=== PATIENT | female | born 1950 | race Caucasian/White ===

== ENCOUNTER → 2016-05-14 | Outpatient (CLI) | payer MEDICARE ==
[~2016-05-14] MED LIST: AMLO10; ENAL5TAB98; FISH300C2; GLUCOSAMINE; LORA10TA7; LORT5TAB PO; MEVA40TA6 PO; SERT100; SINE10100; SYNT25TA; TRAZ50TA78 PO; [UNRECOGNIZED DRUG - OTHER]
[2016-05-14 13:16] LABS: HEMATOCRIT 40.4 % (35.0-46.0); MEAN CELL VOLUME 90.3 FL (80.0-100.0); MEAN CORPUSCULAR HEMOGLOBIN 31.3 PG (27.0-34.0); MEAN CORPUSCULAR HGB CONC 34.7 % (32.0-36.0); PLATELET COUNT 176 TH/MM3 (150-450); RED BLOOD COUNT 4.48 MIL/MM3 (4.00-5.30); REVIEW FLAG FINAL; WHITE BLOOD COUNT 6.7 TH/MM3 (4.0-11.0)
[2016-05-14 13:40] LABS: ALKALINE PHOSPHATASE 81 U/L (45-117); ALT (GPT) 26 U/L (10-53); ANION GAP 9 MEQ/L (5-15); AST (GOT) 17 U/L (15-37); BICARBONATE 28.4 MEQ/L (21.0-32.0); BLOOD UREA NITROGEN 14 MG/DL (7-18); CHLORIDE 103 MEQ/L (98-107); FREE T4 1.14 NG/DL (0.76-1.46); GLOMERULAR FILTRATION RATE 91 ML/MIN (>89); GLUCOSE,FASTING 115 MG/DL (74-99); HDL CHOLESTEROL 48.4 MG/DL (40.0-60.0); LDL CHOLESTEROL 86 MG/DL (0-99); SODIUM (NA) 140 MEQ/L (136-145); TOTAL BILIRUBIN ADULT 0.5 MG/DL (0.2-1.0)
[2016-05-14 16:05] LABS: HEMOGLOBIN A1a 0.9 %; HEMOGLOBIN A1b 0.8 %; HEMOGLOBIN Ao 84.5 %; HEMOGLOBIN F 1.1 %; HEMOGLOBIN LA1C 2.2 %; HEMOGLOBIN P3 3.9 %
== END ==
LOC: PLAB 10:52
PROVIDERS: ATTEND Family Medicine
DX: I10 Essential (primary) hypertension (principal); E78.5 Hyperlipidemia, unspecified; E03.9 Hypothyroidism, unspecified; E11.9 Type 2 diabetes mellitus without complications; G25.81 Restless legs syndrome; K21.9 Gastro-esophageal reflux disease without esophagitis
CPT/HCPCS: 36415; 80053; 80061; 83036; 84439; 84443; 85027

== ENCOUNTER → 2017-01-11 | Outpatient (CLI) | payer MEDICARE ==
[2017-01-11 13:25] LABS: HEMATOCRIT 43.5 % (35.0-46.0); MEAN CELL VOLUME 93.2 FL (80.0-100.0); MEAN CORPUSCULAR HEMOGLOBIN 31.2 PG (27.0-34.0); MEAN CORPUSCULAR HGB CONC 33.4 % (32.0-36.0); PLATELET COUNT 201 TH/MM3 (150-450); RED BLOOD COUNT 4.67 MIL/MM3 (4.00-5.30); RED CELL DISTRIBUTION WIDTH 13.3 % (11.6-17.2); REVIEW FLAG FINAL; WHITE BLOOD COUNT 7.6 TH/MM3 (4.0-11.0)
[2017-01-11 13:31] LABS: ALT (GPT) 23 U/L (10-53); ANION GAP 6 MEQ/L (5-15); AST (GOT) 11 U/L (15-37); BICARBONATE 28.3 MEQ/L (21.0-32.0); BLOOD UREA NITROGEN 17 MG/DL (7-18); CHLORIDE 105 MEQ/L (98-107); GLOMERULAR FILTRATION RATE 75 ML/MIN (>89); GLUCOSE,FASTING 132 MG/DL (74-99); POTASSIUM 4.4 MEQ/L (3.5-5.1); SODIUM (NA) 139 MEQ/L (136-145)
[2017-01-11 13:41] LABS: ALKALINE PHOSPHATASE 78 U/L (45-117); HDL CHOLESTEROL 49.5 MG/DL (40.0-60.0); LDL CHOLESTEROL 96 MG/DL (0-99); TOTAL BILIRUBIN ADULT 0.6 MG/DL (0.2-1.0)
[2017-01-11 19:00] LABS: HEMOGLOBIN A1b 0.8 %; HEMOGLOBIN Ao 84.3 %; HEMOGLOBIN F 1.2 %; HEMOGLOBIN LA1C 2.3 %; HEMOGLOBIN P3 3.9 %
== END ==
LOC: PLAB 10:20
PROVIDERS: ATTEND Family Medicine
DX: I10 Essential (primary) hypertension (principal); E78.5 Hyperlipidemia, unspecified; E03.9 Hypothyroidism, unspecified; E11.9 Type 2 diabetes mellitus without complications; G25.81 Restless legs syndrome; K21.9 Gastro-esophageal reflux disease without esophagitis; M75.81 Other shoulder lesions, right shoulder; Z23 Encounter for immunization; Z68.35 Body mass index [BMI] 35.0-35.9, adult
CPT/HCPCS: 36415; 80053; 80061; 83036; 84443; 85027

== ENCOUNTER → 2017-03-04 | Outpatient (CLI) | payer MEDICARE ==
[~2017-03-04] MED LIST changes: +ALPR.25 PO; +AMLO10TA2 PO; +ASPI-183 PO; +CARB25TA12 PO; +CHRO1CAP7 PO; +CLAR10CA3 PO; +ENAL5TAB PO; +ESTR0.059 T-DERMAL; +FLUT50SP EACH NARE; +HYDR-3580 PO; +LEVO.125 PO; +LOVA40TA PO; +NIAS1000 PO; +OMEGCAP PO; +PROT40TA PO; +RANI150T PO; +SERT-129 PO
[2017-03-04 09:34] LABS: HEMATOCRIT 40.6 % (35.0-46.0); MEAN CELL VOLUME 92.1 FL (80.0-100.0); MEAN CORPUSCULAR HEMOGLOBIN 31.6 PG (27.0-34.0); MEAN CORPUSCULAR HGB CONC 34.3 % (32.0-36.0); PLATELET COUNT 168 TH/MM3 (150-450); RED BLOOD COUNT 4.41 MIL/MM3 (4.00-5.30); RED CELL DISTRIBUTION WIDTH 12.8 % (11.6-17.2); REVIEW FLAG FINAL; WHITE BLOOD COUNT 7.3 TH/MM3 (4.0-11.0)
[2017-03-04 09:36] LABS: BLOOD, URINE NEG (NEG); GLUCOSE,URINE NEG (NEG); KETONE, URINE NEG (NEG); MUCUS URINE MANY /lpf (OCC); NITRITE,URINE NEG (NEG); SQUAMOUS EPITHELIAL CELL URINE 1 /hpf (0-5); URINE COLOR YELLOW (YELLW/STRAW)
[2017-03-04 09:39] LABS: COMMENT (UR) CATH-CULT NOT IND; CULTURE IF INDICATED CATH CULTURE NOT IND
[2017-03-04 09:49] LABS: APTT (PATIENT) 26.3 SEC (24.3-30.1); PROTHROMBIN TIME - PATIENT 10.1 SEC (9.8-11.6)
[2017-03-04 09:58] LABS: BICARBONATE 29.3 MEQ/L (21.0-32.0); POTASSIUM 4.2 MEQ/L (3.5-5.1)
--- NOTE | 2017-03-04 16:06 | EKG ---
Date Performed: 03/04/2017 Time Performed: 08:28:21 PTAGE: 66 years EKG: SINUS BRADYCARDIA RIGHT BUNDLE BRANCH BLOCK ABNORMAL ECG NO PREVIOUS TRACING DOCTOR: Jen Lepe Interpretating Date/Time 03/04/2017 16:05:48
== END ==
LOC: CPRE 08:08
PROVIDERS: ATTEND Orthopaedic Surgery
DX: Z01.810 Encounter for preprocedural cardiovascular examination (principal); M79.609 Pain in unspecified limb; Z01.812 Encounter for preprocedural laboratory examination; M17.11 Unilateral primary osteoarthritis, right knee; I10 Essential (primary) hypertension
CPT/HCPCS: 36415; 80048; 81001; 85027; 85610; 85730; 93005

== ENCOUNTER 2017-03-14 05:05 | Inpatient (IN) | payer MEDICARE ==
[~2017-03-14] VITALS: Ht 177.8 cm; Wt 114.6 kg
[~2017-03-14 05:05] MED LIST changes: -AMLO10; -ENAL5TAB98; -FISH300C2; -GLUCOSAMINE; -HYDR-3580 PO; -LORA10TA7; -LORT5TAB PO; -MEVA40TA6 PO; -SERT100; -SINE10100; -SYNT25TA; -TRAZ50TA78 PO; -[UNRECOGNIZED DRUG - OTHER]
[2017-03-14] MEDS ORDERED: METOPROLOL TARTRATE 25 MG TAB PO PRN (05:30)
[2017-03-14] MEDS ORDERED: CHLORHEXIDINE GLUCONATE 4% SOLN 120 ML BTL TOPICAL SCH (05:30)
[2017-03-14] MEDS ORDERED: TRANEXAMIC ACID INJ 1,150 MG in SODIUM CHLORIDE 0.9% INJ 100 ML IV SCH ×4 (05:30)
[2017-03-14] MEDS ORDERED: ceFAZolin 2 GM PREMIX 50 ML IV SCH (05:30)
[2017-03-14] MEDS ORDERED: SODIUM CHLORID 0.9% 500 ML IV PRN (05:30)
[2017-03-14] MEDS ORDERED: POVIDONE IODINE 5% (ANTISEPSIS KIT) 4 APPLICATIONS EACH NARE PRN (05:30)
[2017-03-14] MEDS ORDERED: CHLORHEXIDINE GLUCONATE 2 % 1 PACK (2 CLOTHS) TOPICAL PRN (05:30)
[2017-03-14] MEDS ORDERED: LACTATED RINGER'S 1000 ML IV PRN (05:30)
[2017-03-14] MEDS ORDERED: GENTAMICIN SULFATE 80 MG/2 ML VIAL ONE (06:00)
[2017-03-14] MEDS ORDERED: BUPIVACAINE LIPOSOME PF 1.3% 20 ML VIAL ONE (06:43)
[2017-03-14] MEDS ORDERED: ONDANSETRON HCL 4 MG/2 ML VIAL IVP PRN (07:00)
[2017-03-14] MEDS ORDERED: MAGNESIUM HYDROXIDE SUSP 30 ML CUP PO PRN (07:00)
[2017-03-14] MEDS ORDERED: Post-op Orders (for Pharmacy) XX ONE (07:00)
[2017-03-14] MEDS: KETOROLAC TROMETHAMINE 30 MG/ML (IVP) VIAL IVP SCH ×3 (07:00→18:50)
[2017-03-14] MEDS ORDERED: ZOLPIDEM TARTRATE 5 MG TAB PO PRN (07:00)
[2017-03-14] MEDS ORDERED: TRANEXAMIC ACID INJ 0 MG in SODIUM CHLORIDE 0.9% INJ 100 ML IV SCH (07:00)
--- NOTE | 2017-03-14 07:01 | HHI.FF ---
Face to Face Verification Diagnosis: (1) Status post total hip replacement, right Physical Therapy Gait training Knee: Total knee, Protocol: Right, Gait training, Full weight bearing Right LE Weight Bearing: WB as tolerated Right LE Range of Motion: Active ROM (AROM,AAROM, PROM. ROM goal is 0 to 135 degrees.) Nursing Nursing: Dressing changes Dressing Changes: Daily dressing change (Start on poastop day 14.), Coverderm/ [place] Additional Instructions Remove steristrips on postop day 14. I have seen patient Sharonda Francisco on 03/14/17. My clinical findings support the need for the requested home health care services because: Ltd mobility - disease progression Limited ability to care for self High risk of falls I certify that my clinical findings support that this patient is homebound because: Post-op weakness Unsteady gait/balance Unsafe to leave home unassisted Milo Nolan MD (Charles) Mar 14, 2017 07:01
[2017-03-14] MEDS: EXPAREL PERI-ARTICULAR INJECTION (TOTAL VOL. 100 ML) P-ARTICULR SCH ×4 (07:30→08:01)
[2017-03-14] MEDS ORDERED: PROPOFOL 500 MG/50 ML INJ 50 ML ONE (07:44)
[2017-03-14] MEDS ORDERED: CHROMIUM PICOLIN PO SCH (09:00)
[2017-03-14] MEDS ORDERED: CINNAMON BARK PO SCH (09:00)
[2017-03-14] MEDS ORDERED: ASPIRIN EC 81 MG TABEC PO SCH (09:00)
[2017-03-14] MEDS: ENALAPRIL MALEATE 5 MG TAB PO SCH (09:00)
[2017-03-14] MEDS: LEVOTHYROXINE SODIUM 125 MCG TAB PO SCH (09:00)
[2017-03-14] MEDS: FLUTICASONE PROPIONATE 50 MCG/ACT 16 GM NASAL SPRAY EACH NARE SCH (09:00)
[2017-03-14] MEDS: LORATADINE 10 MG TAB PO SCH (09:00)
[2017-03-14] MEDS ORDERED: [UNRECOGNIZED DRUG - OTHER] PO SCH (09:00)
[2017-03-14] MEDS ORDERED: NON-FORMULARY DRUG (Fish Oil-Cholecalciferol (Omega-3 Fish Oil/Vitamin) 1 CAP) PO SCH (09:00)
[2017-03-14] MEDS ORDERED: HYDR-3580 PO (09:26)
[2017-03-14] MEDS: LACTATED RINGER'S 1000 ML INJ 1,000 ML IV SCH ×2 (09:45→19:22)
[2017-03-14] MEDS ORDERED: MORPHINE SULFATE 8 MG/ML INJ ONE (09:52)
[2017-03-14] MEDS ORDERED: DO NOT ADM ANY ANTICOAGULANT DRUGS PRN (10:00)
[2017-03-14] MEDS ORDERED: *morphine SULFATE 8 MG/ML PERIprocedure ONLY ONE ×2 (10:09→10:25)
--- NOTE | 2017-03-14 10:11 | MP ---
cc: Truman BARRERA. DATE OF SURGERY 03/14/2017 PREOPERATIVE DIAGNOSIS Primary osteoarthritis right knee. POSTOPERATIVE DIAGNOSIS Primary osteoarthritis right knee. OPERATION PERFORMED Right total knee arthroplasty with [place] Triathlon prosthesis. SURGEON Milo Barrera MD ANESTHESIA Spinal with supplemental adductor canal block and local. INDICATIONS AND FINDINGS This 66-year-old woman has had longstanding right knee pain which has progressed so that her ambulation tolerance is only one-half mile. She has inability to squat or kneel. She has crepitation in the knee and giving-way with night pain as well. She has pain when standing greater than 10 minutes. Treatment has included anti-inflammatory agents, analgesics, activity modification, exercise and ambulatory aids. Physical findings showed some genu varum with tenderness in the medial compartment and in the patellofemoral compartment with severe crepitation. X-rays showed significant osteophytes with loss of articular cartilage in the medial and patellofemoral joints especially. There are osteophytes and eburnation. Operative findings were consistent with the radiographic findings with there being severe patellofemoral arthritis and severe medial arthritis with loss of articular cartilage to exposed subchondral bone. There are osteophytes and there was eburnation. PROSTHESIS USED [place] Triathlon prosthesis. The size of the femur was a size 6 right cruciate-retaining porous coated. This tibial component was a size 6 Tritanium baseplate with a 9-mm cruciate-retaining spacer of C3 polyethylene. The patella was a Tritanium backed asymmetric patella size 35-mm. PROCEDURE The patient was brought to the operating room in the clean-air operating suite and a spinal anesthetic was administered. She received prophylactic antibiotics in the form of Ancef and also used tranexamic acid according to protocols. After receiving spinal anesthetic and an adductor canal block a bolster was placed under the right hip. A pneumatic tourniquet was flexed about the right thigh. The limb was then prepped with alcohol, Hibiclens and Chloraprep and draped in the usual manner with the knee draped free. An appropriate time-out procedure was carried out. An anterior incision was made from about three fingerbreadths above the superomedial pole of the patella down to the tibial tubercle on the medial side. The incision was deepened through the subcutaneous tissues to the retinacular structures which were exposed medially and laterally. A medial retinacular incision was then made from the superior medial pole of patella down to the tibial tubercle and up into the quadriceps tendon splitting it longitudinally in the medial one-third. The patella was reflected. Infrapatellar fat pad was debulked. The anterior cruciate ligament was excised. Medial and lateral meniscectomies were initiated. The posterior surface of patella was then excised with the oscillating saw taking care to prevent injury to tendinous structures. A patella protector was placed onto the posterior aspect. The patella was then dropped into the lateral gutter. Fenestration was made in the distal end of the femur and proximal end of the tibia for intramedullary referencing guides. The femoral cutting block and guide were assembled for a 5-degree, 8-mm cut. The cutting block was stabilized with pins. The jig was removed. The distal femoral cut was completed with the oscillating saw. The sizing guide was positioned in place along [place] line in the epicondylar axis. The size was determined to be a size 6. The four-in-one cutting block was positioned in place followed by cutting the anterior and posterior cuts and the posterior and anterior chamfer cuts respectively. Osteophytes were trimmed. The meniscectomies were completed. The tibial guide was then positioned in place and stabilized for rotation. The depth of cut was verified with a stylus off the lateral side. The cutting block was stabilized with pins. The jig was removed. The depth of cut was verified with the spacer block. The proximal tibial cutting guide was then stabilized again with a secondary pin. The proximal tibial cut was then made with the oscillating saw taking care to prevent injury to neurovascular and ligamentous structures. The spacer block was then used to verify the appropriate cut. This being done, local anesthetic was administered around the periphery of the knee posteriorly with Exparel. The tibial baseplate was placed into position with a 9-mm spacer. The femoral component was then positioned in place and impacted into place. The tibial baseplate was then positioned according to the appropriate rotation and stabilized with pins. Patella drill holes were then made followed by placement of the trial patella. The knee was taken through a range of motion which was easily 0 degrees extension to 135 degrees of flexion with excellent stability in flexion and extension. The femoral drill holes were made. The patella and femoral trials were removed. The tibial spacer was removed. Bone plugs were placed into the distal femur and proximal tibia. The tibial punch was impacted through its guide and removed. The tibial drill guide was positioned in place and drill holes made. All instruments were removed. The cut ends of bone were cleaned with pulse lavage gently. The proximal tibial baseplate was then positioned in place and seated appropriately. The spacer was inserted into this as well. The femoral component was then impacted into place and seated appropriately. The patella was positioned in place and seated appropriately with patella vice. The knee was taken through a range of motion again and was comparable to previously. The remainder of the Exparel was injected throughout the knee. Drains were brought out the superolateral aspect of the suprapatellar pouch. The wound was then closed in layers using 0 Vicryl interrupted [id number] sutures for retinacular and capsular structures, 2-0 Vicryl interrupted simple sutures with buried knots for the subcutaneous tissues and 4-0 Monocryl continuous subcuticular closure for the skin. The wound was dressed with Steri-Strips followed by a silver impregnated dressing, sterile Sof-Rol, cooling pad and Nitish bandage. The patient was transferred from the operating room to the recovery room in satisfactory condition having tolerated procedure well. COUNTS Correct. SPECIMENS None. ESTIMATED BLOOD LOSS 150 mL. MD JUANJO Villafana/SULEIMAN /9:32 AM /9:52 AM
--- NOTE | 2017-03-14 10:18 | HHI.PR ---
Immediate Post Op Note Procedure Date: Mar 14, 2017 Pre Op Diagnosis: (1) Primary osteoarthritis of right knee Post Op Diagnosis: (1) Primary osteoarthritis of right knee Surgeon: Gage Nolan MD Web Content & Social Media Manager(s): YESI Carvalho Procedure: Right total knee arthroplasty with [place] Triathlon prosthesis, uncemented. Findings: OA knee Complications: 0 Specimen(s) removed: 0 Estimated blood loss: 150 ml Anesthesia: Regional Block (Adductor canal block), Spinal, Local (Exparel) Drains: Hemovac (2) IVF Patient to: PACU Patient Condition: Good Implant/Devices: SEE IMPLANT LOG (if applicable) Date/Time of Procedure: SEE SURGICAL CARE RECORD Milo Nolan MD (Charles) Mar 14, 2017 10:17
[2017-03-14 10:40] VITALS: BP 136/61; PULSE 58; RESP 18; TEMP 96; O2SAT 97
--- NOTE | 2017-03-14 10:55 | RADRPT ---
EXAM DATE/TIME: 03/14/2017 10:04 [facility] COMPARISON: No previous studies available for comparison. INDICATIONS : Post-op total right knee arthroplasty. MEDICAL HISTORY : Hypertension. SURGICAL HISTORY : None. ENCOUNTER: Initial ACUITY: 1 day PAIN SCORE: 5/10 LOCATION: Right knee. FINDINGS: Two view examination of the right knee demonstrates no evidence of fracture or dislocation. Right kne e arthroplasty. Surgical drain and post surgical changes. CONCLUSION: Right knee arthroplasty. Juanpablo Ibrahim MD on March 14, 2017 at 10:53 Board Certified Radiologist. This report was verified electronically.
[2017-03-14] MEDS: MORPHINE SULFATE 4 MG/ML INJ IV PUSH PRN ×2 (11:19→17:02)
[2017-03-14] MEDS: ACETAMINOPHEN/HYDROcodone 325 MG/7.5 MG TAB PO PRN ×2 (13:32→18:59)
[2017-03-14] MEDS ORDERED: CARBIDOPA/LEVODOPA 25 MG/250 MG TAB PO PRN (14:15)
--- NOTE | 2017-03-14 14:15 | PD.CONS ---
[facility] Requested By Primary Care Physician Shanice Anthony MD Diagnoses: (1) Status post total hip replacement, right (2) Primary osteoarthritis of right knee History of Present Illness Mrs. Francisco is a 66 year old female. She is in the hospital secondary to undergoing a right total replacement surgery. At baseline she has hypothyroidism, hypertension, allergies, restless leg syndrome, right bundle branch block, hyperlipidemia, and a history of right ankle fracture. Previous surgeries include a hysterectomy, appendectomy, exploratory laparotomy which she had for small bowel obstruction after giving , carpal tunnel surgeries bilaterally and a trigger finger treatment and tonsillectomy. When seen she is postop and her pain is under control. She has no nausea or vomiting. No prior history of bleeding problems after any previous surgery. No complaints when seen. Review of Systems Constitutional: DENIES: Fever, Chills, Night Sweats Eyes: DENIES: Blurred vision, Diplopia, Eye inflammation, Eye pain Ears, nose, mouth, throat: DENIES: Tinnitus, Hearing loss, Vertigo Respiratory: DENIES: Cough, Wheezing, Shortness of breath Cardiovascular: DENIES: Chest pain, Palpitations, Syncope Gastrointestinal: DENIES: Abdominal pain, Black stools, Bloody stools Musculoskeletal: DENIES: Joint pain, Muscle aches, Stiffness Integumentary: DENIES: Abnormal pigmentation, Pruritus, Rash Hematologic/lymphatic: DENIES: Bruising, Lymphadenopathy Immunologic/allergic: DENIES: Eczema, Urticaria Neurologic: DENIES: Abnormal gait, Headache, Paresthesias Psychiatric: DENIES: Anxiety, Confusion, Depression Past Family Social History Allergies: Coded Allergies: nitrofurantoin (Verified Allergy, Severe, 03/14/17) penicillin G (Verified Allergy, Severe, 03/14/17) Past Medical History Hypothyroidism Hypertension Chronic allergies Restless leg syndrome Right bundle-branch block Hyperlipidemia History of right ankle fracture Past Surgical History Tonsillectomy Hysterectomy Appendectomy History of exploratory laparotomy Bilateral carpal tunnel surgery Sugar finger surgery Reported Medications Reported Meds & Active Scripts Active Hydrocodone-Acetamin 7.5-325 (Hydrocodone/Acetaminophen) 7.5 Mg-325 Mg Tablet 1 Tab PO Q4H PRN Reported Xanax (Alprazolam) 0.25 Mg Tab 0.25 Mg PO Q8H PRN Cinnamon Plus Chromium Capsule (Cinnamon Bark/Chromium Picolin) 500 Mg-100 Mcg Capsule 1 Cap PO BID [place]-3 Fish Oil/Vitamin (Fish Oil-Cholecalciferol) 1,000-1,000 Mg Cap 1 Cap PO DAILY [place] Patch 84 HR (Estradiol) 0.05 Mg/24 Hr Patch 1 Patch T-DERMAL Q3D Remove old patch and discard when new patch being placed. Change same 2 days each week. Aspirin 325 Mg Tab 325 Mg PO HS Carbidopa-Levodopa 25-250 Mg Tab 1 Tab PO HS Fluticasone Nasal [place] 50 Mcg/Act Naspr 50 Mcg EACH NARE DAILY 50 mcg/spray Lovastatin 40 Mg Tab 40 Mg PO HS Niaspan (Niacin ER) 1,000 Mg Tab 1,000 Mg PO HS Protonix (Pantoprazole Sodium) 40 Mg Tab 40 Mg PO HS Sertraline (Sertraline HCl) 100 Mg Tab 100 Mg PO HS Ranitidine (Ranitidine HCl) 150 Mg Tab 150 Mg PO BID Claritin (Loratadine) 10 Mg Cap 10 Mg PO DAILY Synthroid (Levothyroxine Sodium) 125 Mcg Tab 125 Mcg PO DAILY Enalapril (Enalapril Maleate) 5 Mg Tab 5 Mg PO DAILY Amlodipine (Amlodipine Besylate) 10 Mg Tab 10 Mg PO DAILY Active Ordered Medications Administered Medications Medications (Trade) Dose Ordered Sig/Tc Route PRN Reason Start Time Stop Time Status Last Admin Dose Admin Lactated Ringer's 1,000 ml @ 30 mls/hr Q24H PRN IV SEE LABEL COMMENTS 03/14/17 05:30 03/17/17 05:29 03/14/17 06:00 Povidone Iodine (Betadine 5% Antisepsis Kit) 1 applic EARLY CHIL[employer]OD EDUCATION SPECIALIST PRN EACH NARE SEE LABEL COMMENTS 03/14/17 05:30 03/17/17 05:29 03/14/17 06:10 Chlorhexidine Gluconate (Chlorhexidine 2% Cloth) 3 pack EARLY CH[employer]OD EDUCATION SPECIALIST PRN TOPICAL SEE LABEL COMMENTS 03/14/17 05:30 03/17/17 05:29 03/14/17 05:30 Chlorhexidine Gluconate (Hibiclens 4% Top Soln) 1 applic ONCE TOPICAL 03/14/17 05:30 03/17/17 05:29 03/14/17 06:00 Cefazolin Sodium/ Dextrose 50 ml @ 100 mls/hr EARLY [employer]UCATION SPECIALIST IV 03/14/17 05:30 03/17/17 05:29 03/14/17 08:09 Tranexamic Acid 1150 mg/Sodium Chloride 111.5 ml @ 200 mls/hr ONCE IV 03/14/17 05:30 03/14/17 16:00 03/14/17 10:11 Bupivacaine Liposome 20 ml/ Sodium Chloride 100 ml @ 200 mls/hr ONCE P-ARTICULR 03/14/17 05:30 03/14/17 16:00 03/14/17 07:30 Lactated Ringer's 1,000 ml @ 80 mls/hr [id number] IV 03/14/17 06:52 03/14/17 09:45 Cefazolin Sodium 1000 mg/Sodium Chloride 100 ml @ 200 mls/hr Q6H IV 03/14/17 12:00 03/15/17 00:29 03/14/17 11:23 Morphine Sulfate (Morphine Inj) 4 mg Q3H PRN IV PUSH BREAKTHROUGH PAIN 03/14/17 07:00 03/14/17 11:19 Acetaminophen/ Hydrocodone Bitart ([place] 7.5-325 Mg) 1 tab Q4H PRN PO PAIN LESS THAN 5 ON SCALE 03/14/17 07:00 03/14/17 13:32 Ketorolac Tromethamine (Toradol Inj) 15 mg Q6H IVP 03/14/17 07:00 03/16/17 01:01 03/14/17 13:29 Family History Hypothyroidism in mother Coronary artery disease, hypertension, and diabetes mellitus in father Social History No history of smoking No history of alcohol abuse No history of drug abuse Physical Exam Vital Signs Vital Signs Date Time Temp Pulse Resp B/P (MAP) Pulse Ox O2 Delivery O2 Flow Rate FiO2 03/14/17 10:40 96.0 58 18 136/61 (86) 97 03/14/17 10:30 97.8 66 19 130/64 (86) 97 Nasal Cannula 2 03/14/17 10:15 61 20 125/61 (82) 98 03/14/17 10:00 59 13 122/61 (81) 98 03/14/17 09:45 66 15 109/56 (73) 99 Nasal Cannula 2 03/14/17 09:34 97.8 67 10 118/58 (78) 95 Nasal Cannula 2 03/14/17 06:22 98.3 65 20 139/66 (90 97 Physical Exam GENERAL: NAD, A&Ox3 HEAD: Normocephalic. NECK: Supple, trachea midline. No lymphadenopathy. EYES: No scleral icterus. No injection or drainage. CARDIOVASCULAR: Regular rate and rhythm without murmurs, gallops, or rubs. RESPIRATORY: Breath sounds equal bilaterally. No accessory muscle use. GASTROINTESTINAL: Abdomen soft, non-tender, nondistended. MUSCULOSKELETAL: No cyanosis, or edema. Right leg is in a mobilizer SKIN: Warm and dry. NEURO: No focal neurological deficitis. Imaging Last Impressions Knee X-Ray 03/14/17 0652 Signed Impressions: Service Date/Time: Tuesday, March 14, 2017 10:04 - CONCLUSION: Right knee arthroplasty. Juanpablo Ibrahim MD Assessment and Plan Problem List: (1) Status post total hip replacement, right ICD Code: Z96.641 - Presence of right artificial hip joint (2) Primary osteoarthritis of right knee ICD Code: M17.11 - Unilateral primary osteoarthritis, right knee Assessment and Plan Assessment and plan 66-year-old female admitted for right knee replacement surgery Status post total right knee arthroplasty Orthopedic surgeons are following Continue pain treatments Physical therapy Patient is planning for home discharge Hypothyroidism Continue supplementation at baseline dosings Follows as an outpatient Hypertension Continue blood pressure treatments Follow blood pressures Adjust if needed Chronic allergies As needed antihistamines Restless leg syndrome Follow clinically Continue baseline treatments with carbidopa Hyperlipidemia Continue baseline treatments Follows in outpatient Mehrdad Bishop MD Mar 14, 2017 14:15
[2017-03-14] MEDS ORDERED: ESTRADIOL TOPICAL SCH (15:45)
[2017-03-14 16:00] VITALS: BP 113/58; PULSE 63; RESP 18; TEMP 98.9; O2SAT 93
[2017-03-14] MEDS: ALPRAZolam 0.25 MG TAB PO PRN (16:00)
[2017-03-14 20:00] VITALS: BP 120/71; PULSE 96; RESP 16; TEMP 98.8; O2SAT 97
[2017-03-14] MEDS: FAMOTIDINE 20 MG TAB PO SCH (20:30)
[2017-03-14] MEDS: PANTOPRAZOLE SOD 40 MG DELAYED RELEASE TAB PO SCH (20:30)
[2017-03-14] MEDS: PRAVASTATIN SOD 40 MG TAB PO SCH (20:31)
[2017-03-14] MEDS: NIACIN 500 MG EXTENDED RELEASE TAB PO SCH (20:31)
[2017-03-14] MEDS: SERTRALINE HCL 100 MG TAB PO SCH (20:32)
[2017-03-14] MEDS: CARBIDOPA/LEVODOPA 25 MG/250 MG TAB PO SCH (20:32)
[2017-03-15] MEDS: ACETAMINOPHEN/HYDROcodone 325 MG/7.5 MG TAB PO PRN ×6 (00:02→22:42)
[2017-03-15] MEDS: KETOROLAC TROMETHAMINE 30 MG/ML (IVP) VIAL IVP SCH ×4 (00:04→18:09)
[2017-03-15 00:30] VITALS: BP 114/55; PULSE 65; RESP 18; TEMP 98.3; O2SAT 97
[2017-03-15] MEDS: ALPRAZolam 0.25 MG TAB PO PRN ×2 (02:08→12:15)
[2017-03-15 04:00] VITALS: BP 125/59; PULSE 64; RESP 18; TEMP 97.5; O2SAT 97
[2017-03-15] MEDS: MORPHINE SULFATE 4 MG/ML INJ IV PUSH PRN ×2 (04:27→12:24)
--- NOTE | 2017-03-15 06:27 | PD.ORT.PN ---
Subjective Post Op Day #: 1 Subjective Remarks She is doing well. She has been out of bed with therapy. Apparently, her block is no longer functional, therefore there is more pain. When she takes her analgesics, the pain is well-controlled. Range of Motion -11-90 Distance Walked 10 feet in the room with PT, the second visit. Objective Vitals Vital Signs Date Time Temp Pulse Resp B/P (MAP) Pulse Ox O2 Delivery O2 Flow Rate FiO2 03/15/17 04:00 97.5 64 18 125/59 (81) 97 03/15/17 00:30 98.3 65 18 114/55 (74) 97 03/14/17 20:00 98.8 96 16 120/71 (87) 97 03/14/17 16:00 98.9 63 18 113/58 (76) 93 03/14/17 10:40 96.0 58 18 136/61 (86) 97 03/14/17 10:30 97.8 66 19 130/64 (86) 97 Nasal Cannula 2 03/14/17 10:15 61 20 125/61 (82) 98 03/14/17 10:00 59 13 122/61 (81) 98 03/14/17 09:45 66 15 109/56 (73) 99 Nasal Cannula 2 03/14/17 09:34 97.8 67 10 118/58 (78) 95 Nasal Cannula 2 03/14/17 06:22 98.3 65 20 139/66 (90) 97 I/O 03/14/17 03/14/17 03/14/17 03/15/17 03/15/17 03/15/17 07:00 15:00 23:00 07:00 15:00 23:00 Intake Total 1800 ml 580 ml 100 ml Output Total 250 ml 270 ml 160 ml Balance 1550 ml 310 ml -60 ml Intake Oral 600 ml 480 ml IV Total 100 ml 100 ml Other 1200 ml Output Drainage Total 100 ml 270 ml 160 ml Estimated Blood Loss 150 ml # Voids 2 3 2 # Bowel Movements 0 0 Imaging Last 24 hours Impressions Knee X-Ray 03/14/17 0652 Signed Impressions: Service Date/Time: Tuesday, March 14, 2017 10:04 - CONCLUSION: Right knee arthroplasty. Juanpablo Ibrahim MD Objective Remarks She is resting comfortably, supine in bed, in the CPM. The neurovascular status is intact. The dressing is dry and intact. Assessment & Plan Ortho Post Op Day #: 1 Problem List: (1) Status post total right knee replacement ICD Codes: Z96.651 - Presence of right artificial knee joint Plan: Continue postop care and PT. Assessment and Plan Condition: Good. Orthopedically stable. DVT prophylaxis: TEDs, aspirin, sequentials. Discharge plans: Home with home health care. An appointment was scheduled through the office. Prescriptions: [place] 7.5/325 Milo Nolan MD (Charles) Mar 15, 2017 06:27
[2017-03-15 07:37] VITALS: BP 121/57; PULSE 64; RESP 19; TEMP 96.7; O2SAT 97
[2017-03-15] MEDS: LACTATED RINGER'S 1000 ML INJ 1,000 ML IV SCH ×2 (07:52→20:22)
[2017-03-15] MEDS: LEVOTHYROXINE SODIUM 125 MCG TAB PO SCH (08:44)
[2017-03-15] MEDS: ASPIRIN EC 81 MG TABEC PO SCH ×2 (08:45→21:24)
[2017-03-15] MEDS: FAMOTIDINE 20 MG TAB PO SCH ×2 (08:45→21:24)
[2017-03-15] MEDS: LORATADINE 10 MG TAB PO SCH (08:45)
[2017-03-15] MEDS: ENALAPRIL MALEATE 5 MG TAB PO SCH (08:45)
[2017-03-15] MEDS: FLUTICASONE PROPIONATE 50 MCG/ACT 16 GM NASAL SPRAY EACH NARE SCH (08:54)
[2017-03-15 09:13] LABS: REVIEW FLAG FINAL
[2017-03-15 11:48] VITALS: BP 98/53; PULSE 65; RESP 19; TEMP 96.2; O2SAT 94
[2017-03-15 16:00] VITALS: BP 107/53; PULSE 72; RESP 19; TEMP 97.7; O2SAT 91
[2017-03-15 20:44] VITALS: BP 97/48; PULSE 62; RESP 16; TEMP 96.8; O2SAT 95
[2017-03-15] MEDS: DOCUSATE SODIUM 100 MG CAP PO SCH (21:24)
[2017-03-15] MEDS: PANTOPRAZOLE SOD 40 MG DELAYED RELEASE TAB PO SCH (21:24)
[2017-03-15] MEDS: PRAVASTATIN SOD 40 MG TAB PO SCH (21:24)
[2017-03-15] MEDS: NIACIN 500 MG EXTENDED RELEASE TAB PO SCH (21:24)
[2017-03-15] MEDS: CARBIDOPA/LEVODOPA 25 MG/250 MG TAB PO SCH (21:24)
[2017-03-15] MEDS: SERTRALINE HCL 100 MG TAB PO SCH (21:25)
[2017-03-16 00:31] VITALS: BP 131/66; PULSE 86; RESP 17; TEMP 98.3; O2SAT 92
[2017-03-16] MEDS: KETOROLAC TROMETHAMINE 30 MG/ML (IVP) VIAL IVP SCH (00:32)
[2017-03-16 03:40] VITALS: BP 106/60; PULSE 67; RESP 17; TEMP 97.6; O2SAT 93
[2017-03-16] MEDS: ACETAMINOPHEN/HYDROcodone 325 MG/7.5 MG TAB PO PRN ×3 (04:09→12:40)
[2017-03-16] MEDS ORDERED: LEVOTHYROXINE SODIUM 125 MCG TAB PO SCH (06:00)
--- NOTE | 2017-03-16 06:29 | PD.ORT.PN ---
Subjective Post Op Day #: 2 Subjective Remarks She is doing well. She has been out of bed with therapy. When she takes her analgesics, the pain is well-controlled. Range of Motion -8-92 Distance Walked 100 feet with PT. Objective Vitals Vital Signs Date Time Temp Pulse Resp B/P (MAP) Pulse Ox O2 Delivery O2 Flow Rate FiO2 03/16/17 03:40 97.6 67 17 106/60 (75) 93 03/16/17 00:31 98.3 86 17 131/66 (87) 92 03/15/17 20:44 96.8 62 16 97/48 (64) 95 03/15/17 16:00 97.7 72 19 107/53 (71) 91 03/15/17 11:48 96.2 65 19 98/53 (68) 94 03/15/17 07:37 96.7 64 19 121/57 (78) 97 I/O 03/15/17 03/15/17 03/15/17 03/16/17 03/16/17 03/16/17 07:00 15:00 23:00 07:00 15:00 23:00 Intake Total 100 ml 800 ml 360 ml Output Total 160 ml 250 ml 70 ml Balance -60 ml 800 ml 110 ml -70 ml Intake Oral 800 ml 360 ml IV Total 100 ml Output Drainage Total 160 ml 250 ml 70 ml # Voids 2 3 2 # Bowel Movements 0 0 Result Diagram: 03/15/17 0835 Imaging Last 24 hours Impressions Knee X-Ray 03/14/17 0652 Signed Impressions: Service Date/Time: Tuesday, March 14, 2017 10:04 - CONCLUSION: Right knee arthroplasty. Juanpablo Ibrahim MD Objective Remarks She is resting comfortably, supine in bed, in the CPM. The neurovascular status is intact. The dressing is dry and intact. Assessment & Plan Ortho Post Op Day #: 2 Problem List: (1) Status post total right knee replacement ICD Codes: Z96.651 - Presence of right artificial knee joint Plan: Continue postop care and PT. Assessment and Plan Condition: Good. Orthopedically stable. DVT prophylaxis: TEDs, aspirin, sequentials. Discharge plans: Home with home health care. An appointment was scheduled through the office. Prescriptions: [place] 7.5/325 Milo Nolan MD (Charles) Mar 16, 2017 06:29
--- NOTE | 2017-03-16 06:59 | HHI.DS ---
Discharge Summary Admission Date Mar 14, 2017 at 05:05 Discharge Date: Mar 16, 2017 Admitting Diagnosis Primary osteoarthritis, right knee. Diagnosis: (1) Status post total right knee replacement Diagnosis: Principal ICD Codes: Z96.651 - Presence of right artificial knee joint Procedures Right total knee arthroplasty with Striker triathlon prosthesis (uncemented) Brief History This is a 66 year old female patient has had long-standing pain in her right knee nonresponsive to conservative measures as detailed in the history and physical. She had limited motion with crepitation on motion in the knee. X- rays showed significant degeneration in the knee with osteophytes and eburnation. CBC/BMP: 03/15/17 0835 Significant Findings Laboratory Tests Test 03/15/17 08:35 PE at Discharge She is resting comfortably, supine in bed, in the CPM. The neurovascular status is intact. The dressing is dry and intact. Hospital Course She was admitted on the above-noted date and had a right total knee arthroplasty carried out. She had prophylactic antibiotics in form of Ancef according protocol and also had DVT prophylaxis initiated immediately postoperatively in the postanesthesia care unit. This continued according to protocol. Physical therapy was started on the day of surgery and continued after this. She was able to ambulate in excess of 100 feet. Her range of motion was slightly limited, as expected. She progressed during her hospitalization and is discharged with home health care. Pt Condition on Discharge: Good Discharge Disposition: Disch w/ Home Health Serv Discharge Instructions Diet Instructions: As Tolerated, No Restrictions Activities You Can Perform: Full Weight Bearing, Shower Only-No Bath Activities to Avoid: Strenuous Activity, Bathing, Driving Follow up Referrals: Orthopedics with Milo Nolan MD ([place]) PCP Follow-up - 2 Weeks SNF/[facility]/ with [facility] New Medications: Hydrocodone/Acetaminophen (Hydrocodone-Acetamin 7.5-325) 7.5 Mg-325 Mg Tablet 1 TAB PO Q4H PRN for PAIN LESS THAN 5 ON SCALE, #50 TAB Continued Medications: Alprazolam (Xanax) 0.25 Mg Tab 0.25 MG PO Q8H PRN for ANXIETY, TAB 0 Refills Amlodipine (Amlodipine) 10 Mg Tab 10 MG PO DAILY for Blood Pressure Management, #30 TAB 0 Refills Aspirin (Aspirin) 325 Mg Tab 325 MG PO HS, #30 TAB 0 Refills Carbidopa-Levodopa (Carbidopa-Levodopa) 25-250 Mg Tab 1 TAB PO HS for Parkinson Disease Mgmt, #90 TAB 0 Refills Cinnamon Bark/Chromium Picolin (Cinnamon Plus Chromium Capsule) 500 Mg-100 Mcg Capsule 1 CAP PO BID for Nutritional Supplement Enalapril (Enalapril) 5 Mg Tab 5 MG PO DAILY, #30 TAB 0 Refills Estradiol Patch 84 HR (Min[place]elle Patch 84 HR) 0.05 Mg/24 Hr Patch 1 PATCH T-DERMAL Q3D for Estrogen Supplements, #8 PATCH 0 Refills Remove old patch and discard when new patch being placed. Change same 2 days each week. Fish Oil-Cholecalciferol ([place]-3 Fish Oil/Vitamin) 1,000-1,000 Mg Cap 1 CAP PO DAILY for Nutritional Supplement, CAP 0 Refills Fluticasone Nasal Martin (Fluticasone Nasal Martin) 50 Mcg/Act Naspr 50 MCG EACH NARE DAILY for Allergy Management, #1 BOTTLE 0 Refills 50 mcg/spray Levothyroxine (Synthroid) 125 Mcg Tab 125 MCG PO DAILY for Thyroid, #30 TAB 0 Refills Loratadine (Claritin) 10 Mg Cap 10 MG PO DAILY for Allergy Management, CAP 0 Refills Lovastatin (Lovastatin) 40 Mg Tab 40 MG PO HS for Cholesterol Management, #30 TAB 0 Refills Niacin ER (Niaspan) 1,000 Mg Tab 1000 MG PO HS for Cholesterol Management, #30 TAB 0 Refills Pantoprazole (Protonix) 40 Mg Tab 40 MG PO HS for Reflux, #30 TAB 0 Refills Ranitidine (Ranitidine) 150 Mg Tab 150 MG PO BID for Heartburn Management, #60 TAB 0 Refills Sertraline (Sertraline) 100 Mg Tab 100 MG PO HS, #30 TAB 0 Refills Milo Nolan MD ([place]) Mar 16, 2017 06:59
[2017-03-16 07:39] VITALS: BP 109/59; PULSE 75; RESP 19; TEMP 96.2; O2SAT 92
[2017-03-16] MEDS: ASPIRIN EC 81 MG TABEC PO SCH (08:30)
[2017-03-16] MEDS: DOCUSATE SODIUM 100 MG CAP PO SCH (08:30)
[2017-03-16] MEDS: LORATADINE 10 MG TAB PO SCH (08:30)
[2017-03-16] MEDS: FAMOTIDINE 20 MG TAB PO SCH (08:30)
[2017-03-16] MEDS: LACTATED RINGER'S 1000 ML INJ 1,000 ML IV SCH (08:31)
[2017-03-16] MEDS: FLUTICASONE PROPIONATE 50 MCG/ACT 16 GM NASAL SPRAY EACH NARE SCH (08:31)
[2017-03-16] MEDS: ENALAPRIL MALEATE 5 MG TAB PO SCH (08:31)
[2017-03-16 09:33] LABS: HEMATOCRIT 33.1 % (35.0-46.0); REVIEW FLAG FINAL
[2017-03-16 11:38] VITALS: BP 112/49; PULSE 66; RESP 19; TEMP 96.8; O2SAT 96
== END 2017-03-16 15:25 | disposition home health service (06) | DRG 470 ==
LOC: HSDI 05:05 → N06A 10:41
PROVIDERS: ADMIT Orthopaedic Surgery; ATTEND Orthopaedic Surgery
PROC: 3E0T3BZ Introduction of Anesthetic Agent into Peripheral Nerves and Plexi, Percutaneous Approach (ICD-10-PCS; 2017-03-14)
PROC: 0SRC0JA Replacement of Right Knee Joint with Synthetic Substitute, Uncemented, Open Approach (ICD-10-PCS; principal; 2017-03-14 06:47)
DX: M17.11 Unilateral primary osteoarthritis, right knee (principal); I10 Essential (primary) hypertension; M21.161 Varus deformity, not elsewhere classified, right knee; E03.9 Hypothyroidism, unspecified; G25.81 Restless legs syndrome; I45.10 Unspecified right bundle-branch block; E78.5 Hyperlipidemia, unspecified; R73.03 Prediabetes; K21.9 Gastro-esophageal reflux disease without esophagitis
CPT/HCPCS: 73560; 85014; 85018; 86850; 86900; 86901; C9290; J0690; J1580; J1885; J2270; J3410; J7120

== ENCOUNTER → 2017-06-15 | Outpatient (CLI) | payer MEDICARE ==
[~2017-06-15] MED LIST changes: +HYDR-3580 PO
[2017-06-15 11:04] LABS: HEMATOCRIT 39.4 % (35.0-46.0); HEMOGLOBIN 13.3 GM/DL (11.6-15.3); MEAN CELL VOLUME 89.9 FL (80.0-100.0); MEAN CORPUSCULAR HEMOGLOBIN 30.3 PG (27.0-34.0); MEAN CORPUSCULAR HGB CONC 33.7 % (32.0-36.0); MEAN PLATELET VOLUME 10.1 FL (7.0-11.0); PLATELET COUNT 197 TH/MM3 (150-450); RED BLOOD COUNT 4.39 MIL/MM3 (4.00-5.30); RED CELL DISTRIBUTION WIDTH 13.6 % (11.6-17.2); WHITE BLOOD COUNT 6.3 TH/MM3 (4.0-11.0)
[2017-06-15 11:22] LABS: ALBUMIN 3.8 GM/DL (3.4-5.0); ALT (GPT) 17 U/L (10-53); AST (GOT) 12 U/L (15-37); BICARBONATE 28.9 MEQ/L (21.0-32.0); BLOOD UREA NITROGEN 15 MG/DL (7-18); CALCIUM 8.9 MG/DL (8.5-10.1); CHLORIDE 105 MEQ/L (98-107); CHOLESTEROL 163 MG/DL (120-200); CREATININE 0.73 MG/DL (0.50-1.00); GLOMERULAR FILTRATION RATE 80 ML/MIN (>89); GLUCOSE,FASTING 127 MG/DL (74-99); SODIUM (NA) 141 MEQ/L (136-145); TRIGLYCERIDES 142 MG/DL (42-150)
[2017-06-15 11:31] LABS: ALKALINE PHOSPHATASE 87 U/L (45-117); CHOLESTEROL/ HDL RATIO 3.59 RATIO; HDL CHOLESTEROL 45.3 MG/DL (40.0-60.0); LDL CHOLESTEROL 89 MG/DL (0-99); TOTAL BILIRUBIN ADULT 0.6 MG/DL (0.2-1.0); TOTAL PROTEIN 7.3 GM/DL (6.4-8.2)
[2017-06-15 16:55] LABS: HEMOGLOBIN A1C 6.1 % (4.3-6.0)
== END ==
LOC: PLAB 08:41
PROVIDERS: ATTEND Family Medicine
DX: E78.5 Hyperlipidemia, unspecified (principal); I10 Essential (primary) hypertension; E03.9 Hypothyroidism, unspecified; E11.9 Type 2 diabetes mellitus without complications; G25.81 Restless legs syndrome; K21.9 Gastro-esophageal reflux disease without esophagitis; M75.81 Other shoulder lesions, right shoulder; Z68.35 Body mass index [BMI] 35.0-35.9, adult
CPT/HCPCS: 36415; 80053; 80061; 83036; 84443; 85027